=== PATIENT | male | born 1985 | race Caucasian/White ===

== ENCOUNTER 2018-04-23 19:21 | Emergency (ER) | payer OTHER ==
[~2018-04-23] VITALS: Ht 185.4 cm; Wt 136.4 kg
[2018-04-23 19:21] VITALS: BP 140/89
[2018-04-23] MEDS ORDERED: LIDOCAINE 2% MDV 20 ML VIAL SC ONE (21:00)
[2018-04-23] MEDS ORDERED: ADACEL/BOOSTRIX VACCINE (DIPHTH/PERTUSS/ACELL/TETANUS)0.5ML SYR (90715) IM ONE (21:00)
== END 2018-04-23 21:12 | disposition home or self-care (01) ==
LOC: M ED 19:21
DX: S61.412A Laceration without foreign body of left hand, initial encounter (principal); W26.0XXA Contact with knife, initial encounter; Y92.098 Other place in other non-institutional residence as the place of occurrence of the external cause

== ENCOUNTER → 2020-12-18 | Outpatient (REF) | payer OTHER | LOC: M SMT 17:03 | PROVIDERS: ATTEND Urology | DX: Z30.2 Encounter for sterilization (principal) ==

== ENCOUNTER → 2021-02-20 | Outpatient (REF) | payer OTHER ==
[2021-02-20 13:09] LABS: SEMEN APPEARANCE OPAQUE (OPAQUE); SEMEN VISCOSITY LIQUID (LIQUID); SEMEN VOLUME 1.9 ml (2.0-5.0); WBC CONCENTRATION >1 M/ml (<=1 M/ml)
== END ==
LOC: M SMT 12:48
PROVIDERS: ATTEND Urology
DX: Z30.8 Encounter for other contraceptive management (principal)

== ENCOUNTER 2022-11-13 07:19 | Day surgery (SDC) | payer OTHER ==
[~2022-11-13] VITALS: Ht 185.4 cm; Wt 128.8 kg
[~2022-11-13 07:19] MED LIST: UNRESOLVED CLARIFICATION ENTRY XX SCH
[2022-11-13] MEDS ORDERED: LR 1,000 ML IV SCH ×2 (07:55→10:00)
[2022-11-13] MEDS ORDERED: fentaNYL 100 MCG/2 ML INJECTION As Ordered ONE (07:56)
[2022-11-13] MEDS ORDERED: MIDAZOLAM INJ 2MG/2ML VIAL As Ordered ONE (07:58)
[2022-11-13] MEDS ORDERED: ONDANSETRON 4MG 2ML VIAL As Ordered ONE (07:58)
[2022-11-13] MEDS ORDERED: KETOROLAC 60MG 2ML VIAL As Ordered ONE (07:58)
[2022-11-13] MEDS ORDERED: SUGAMMADEX SODIUM 500 MG/5 ML VIAL (BRIDION) As Ordered ONE (07:58)
[2022-11-13] MEDS ORDERED: ROCURONIUM BROMIDE 50MG/5ML VIAL As Ordered ONE (07:58)
[2022-11-13] MEDS ORDERED: propofoL 200 MG/20 ML VIAL As Ordered ONE (07:58)
[2022-11-13] MEDS ORDERED: dexmedeTOMIDine (4MCG/ML)200MCG/50ML BTL (PRECEDEX) As Ordered ONE (07:59)
[2022-11-13] MEDS ORDERED: LIDOCAINE 2% 100MG/5ML SDV (FOR ANES.) As Ordered ONE (08:01)
[2022-11-13] MEDS ORDERED: ceFAZolin SOD 2 GM in IV 1 EA IV ONE (09:00)
[2022-11-13] MEDS ORDERED: HYDROMORPHONE HCL 0.5 MG/ 0.5 ML SYRINGE IV PRN (10:00)
[2022-11-13] MEDS ORDERED: fentaNYL 100 MCG/2 ML INJECTION IV PRN (10:00)
[2022-11-13] MEDS ORDERED: ONDANSETRON 4MG 2ML VIAL IV PRN (10:00)
[2022-11-13] MEDS ORDERED: oxyCODONE 5MG TAB PO PRN (10:00)
[2022-11-13] MEDS ORDERED: NS 1,000 ML IV SCH (10:35)
[2022-11-13] MEDS ORDERED: traMADol 50 MG TAB PO PRN (10:35)
[2022-11-13 10:50] VITALS: BP 138/85; TEMP 97.2; O2SAT 98
== END 2022-11-13 10:59 | disposition home or self-care (01) ==
LOC: M SDC 07:19
PROVIDERS: ATTEND Surgery
DX: K43.9 Ventral hernia without obstruction or gangrene (principal); G47.30 Sleep apnea, unspecified; I10 Essential (primary) hypertension; F12.10 Cannabis abuse, uncomplicated; R51.9 Headache, unspecified
CPT/HCPCS: 49591; 88302; C9290; J0665; J0690; J1100; J1885; J2250; J2405; J3010